=== PATIENT | male | born 2005 | race Caucasian/White ===

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

== ENCOUNTER 2023-02-03 19:29 | Emergency (ER) | payer MEDICAID, OTHER ==
[2023-02-03 19:39] VITALS: TEMP 98.8
[2023-02-03 19:51] VITALS: O2SAT 98
[2023-02-03] MEDS ORDERED: Epinephrine Preservative Free 1 MG/ML ONE (19:51)
[2023-02-03] MEDS ORDERED: solu-MEDROL ONE (19:56)
[2023-02-03] MEDS ORDERED: BENADRYL 50 MG/ML ONE (19:56)
[2023-02-03] MEDS ORDERED: Pepcid 20 MG VIAL IV ONE (19:56)
[2023-02-03] MEDS ORDERED: Sterile H2O 10 ml IJ ONE (19:56)
[2023-02-03] MEDS: BENADRYL 50 MG/ML IV ONE (19:58)
[2023-02-03] MEDS: Epinephrine Preservative Free 1 MG/ML SQ STA (19:58)
[2023-02-03] MEDS: solu-MEDROL 125 MG, Sterile H2O 10 ml 2 ML IV ONE ×2 (19:58)
[2023-02-03] MEDS: Pepcid 20 MG VIAL IV ONE (19:59)
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
[2023-02-03 21:56] VITALS: BP 140/62; PULSE 69; RESP 15
== END 2023-02-03 22:01 | disposition home or self-care (01) ==
LOC: ED 19:29
DX: T78.40XA Allergy, unspecified, initial encounter (principal); L50.0 Allergic urticaria; L29.9 Pruritus, unspecified; Z79.52 Long term (current) use of systemic steroids
CPT/HCPCS: 36000; 96372; 96374; 99283; J0171; J1200; J2930